=== PATIENT | female | born 1945 | race Caucasian/White ===

== ENCOUNTER → 2016-06-21 | Day surgery (SDC) | payer MEDICARE ==
--- NOTE | 2016-06-17 10:27 | HP ---
ADMITTING HISTORY AND PHYSICAL: DATE OF ADMISSION: 06/21/16 AGE: 70 years, female. ADMITTING DIAGNOSIS: Right hydronephrosis. PLANNED PROCEDURES: Cystoscopy, right retrograde, pyelogram, right ureteroscopy and stent insertion. SURGEON: Kayden Richardson MD ADMITTING HISTORY OF PRESENT ILLNESS: Stacy Ceron is a 70-year-old lady who has had mild right-sided, particularly right lower quadrant pain in the last 1 month which has been progressively getting worse. She denies any nausea or vomiting and her symptoms prompted a CT scan which showed moderate to severe right hydronephrosis. There was no definite calculus noted either on the CT scan or on a subsequent ultrasound. There was some thickening noted at the proximal and mid right ureter and some other findings noted on the CT scan for which she is following up with Dr. Gutierrez. Since there was no significant dilatation of the ureter noted, one possibility is that this may represent a congenital ureteropelvic junction obstruction; the second possibility is it may represent a stricture related to previous pelvic surgery (status post hysterectomy) and the other possibility is some sort of a neoplasm involving the urothelium. PAST MEDICAL HISTORY: Significant for: 1. Hypothyroidism. 2. Herpes. 3. History of right breast cancer in 2005. PAST SURGICAL HISTORY: 1. Significant for total abdominal hysterectomy and bilateral salpingo- oophorectomy in March 2015 for benign conditions. 2. Right breast lumpectomy (followed by radiation and chemotherapy). 3. Bilateral cataracts. MEDICATIONS ON ADMISSION: Include: 1. Prozac 20 mg a day. 2. [place] Thyroid 90 mcg daily. 3. Vitamin D3 at 5000 international units 2 tablets every other day. 4. Acyclovir 800 mg t.i.d. p.r.n. ALLERGIES AND INTOLERANCES: PENICILLIN and STATINS. SMOKING HISTORY: She is a former smoker with a [id number] smoking history who quit about 40 years ago. PHYSICAL EXAMINATION GENERAL: Reveals a pleasant healthy-appearing lady. VITAL SIGNS: Blood pressure 118/60, pulse 75 per minute, temperature 97.1, oxygen saturation 98% on room air. CARDIOVASCULAR: Regular rate and rhythm. S1, S2. LUNGS: Clear bilaterally. ABDOMEN: Soft with no palpable masses. There is no flank tenderness and no abdominal tenderness. LABORATORY/DIAGNOSTIC DATA: Urinalysis is negative. I reviewed the CT scan and ultrasound and had a detailed discussion with Mrs. Ceron regarding the findings and regarding the possible etiology of the hydronephrosis. PLAN: The plan is for right retrograde, right uteroscopy and right stent insertion. She will also be following up with Dr. Gutierrez to discuss the management of the other findings noted on CT scan including abnormality involving the left adrenal gland and possible liver lesions and pleural effusion. CC: Nayeli Gutierrez MD* [id number]/[facility] #: [id number] [facility]ITAL[facility]ando
[~2016-06-21] MED LIST: Buffered Lidocaine 1% SYR 3ML* 3 ML/SYR SYRINGE INTRADERM ONE; Buffered Lidocaine 1% SYR 3ML* 3 ML/SYR SYRINGE ONE; CMCS: Solifenacin(NF) 5 MG TAB PO ONE; Dexamethasone IV* 4 MG/ML 1 ML (4 MG) IV SLOW PU ONE; Dexamethasone IV* 4 MG/ML 1 ML (4 MG) ONE; Furosemide IV* 10 MG/ML 2 ML VIAL (20 MG) ONE; Gentamicin ADULT (*) 140 MG in NS 0.9% 100 ML* 100 ML IVPB ONE; HYDROcodone/ACETAMIN 5-325 MG* 1 TAB ONE; HYDROcodone/ACETAMIN 5-325 MG* 1 TAB PO PRN; Iohexol 180 (CONTRAST) 10 ML SDV IV ONE; Levofloxacin 500 MG IVPREMIX(* 500 MG/100 ML BAG IVPB ONE; Lidocaine 2% MPF* 2 ML VIAL ONE; Ondansetron INJ* 2 MG/ML VIAL ONE; PROCHLORPERAZINE INJ 5 MG/ML 2 ML VIAL IV PRN; Propofol* 10 MG/ML 20 ML BTL IV PUSH ONE; fentaNYL* 50 MCG/ML 2 ML VIAL (100 MCG VIAL) ONE; oxyCODONE/Acetamin 5/325 MG* TAB PO PRN
[2016-06-21] MEDS: fentaNYL* 50 MCG/ML 2 ML VIAL (100 MCG VIAL) IV PRN ×5 (10:21→10:51)
--- NOTE | 2016-06-21 10:33 | RAD ---
INDICATION: Right ureteroscopy and stent insertion COMPARISONS: CT dated June 13, 2016 TECHNIQUE: Fluoroscopy was provided for a retrograde pyelogram and stent placement. Total fluoroscopy time is: 25 seconds FINDINGS: Contrast is noted within the dilated renal collecting system. A ureteral stent is noted. IMPRESSION: FLUOROSCOPY WAS PROVIDED FOR A RETROGRADE PYELOGRAM AND STENT PLACEMENT CPT II Codes: 6045F
[2016-06-21 13:01] VITALS: BP 123/64
--- NOTE | 2016-06-21 23:20 | OP ---
DATE OF OPERATION: 06/21/16 [facility] DATE OF : 41 SURGEON: Kayden Richardson MD ANESTHESIOLOGIST: Dr. Brock. ANESTHESIA: General. PRE-OP DIAGNOSIS: Right hydronephrosis. POST-OP DIAGNOSES: Right hydronephrosis, right ureteral stricture. OPERATIVE PROCEDURE: Cystoscopy, right retrograde pyelogram, right ureteroscopy , right ureteral balloon dilatation, and right stent insertion. COMPLICATIONS: None. STENT USED: An 8.5-[place] 28 cm silicon stent, right ureter. SPECIMENS: Washings from right ureter for cytology. INDICATIONS: Stacy Ceron is a 70-year-old lady who was evaluated for right hydronephrosis. She was noted to have right hydronephrosis without any obvious obstructing calculus or lesion noted. OPERATIVE FINDINGS: 1. Normal appearing bladder. 2. Right hydronephrosis and proximal hydroureter with stricture noted at the junction of the [id number] right ureter (either stricture status post hysterectomy or strictures secondary to extrinsic obstruction from fibrotic tumor surrounding the ureter). DESCRIPTION OF PROCEDURE: After induction of general anesthesia, the patient was placed in dorsal lithotomy position. Sequential compression devices were in place and functioning. Initial cystoscopy revealed a normal-appearing bladder. A guidewire was introduced into the right orifice. Retrograde pyelogram revealed right hydronephrosis with proximal hydroureter. There was a little bit of irregularity in the appearance at the ureteropelvic junction but no definite filling defect was noted and there did appear to be tapering of the ureter at the level of [id number] right ureter, where there appeared to be a stricture. After completion of the retrograde pyelogram, the ureter was initially dilated with dilating catheters to 5-[place] and then to 8-[place]. Next, a 6-[place] semi-rigid ureteroscope was introduced and advanced under direct vision. The distal 3 to 4 cm of the ureter were of normal caliber and then the ureter started getting narrower and the mucosa appeared blanched suggesting a stricture secondary to extrinsic pressure. I did not attempt to force the ureteroscope through the strictured area and at this point decided to proceed with balloon dilatation. Balloon dilatation of the entire strictured segment was successfully carried out under fluoroscopic monitoring. An 8.5- [place] 28 cm silicon stent was then introduced and positioned under fluoroscopy with good proximal and distal positioning obtained. Prior to doing this, washings had been obtained from the ureter and sent for cytology. I think the obstruction is most likely related to a stricture, either a postoperative stricture or possibly a malignant stricture due to fibrotic malignancy surrounding that segment of the ureter. The patient tolerated the procedure satisfactorily and was transferred back to the recovery area in stable condition. CC: Nayeli Gutierrez MD; Kaylee Velazquez MD; Kayden Richardson* [id number]/[facility] #: [id number] [facility] HOSPITALArmando
== END | disposition home or self-care (01) ==
LOC: OR 07:06
PROVIDERS: ATTEND Urology
DX: N13.1 Hydronephrosis with ureteral stricture, not elsewhere classified (principal); Z87.891 Personal history of nicotine dependence; Z85.3 Personal history of malignant neoplasm of breast; E03.9 Hypothyroidism, unspecified
CPT/HCPCS: 74420; 88112; C1876; J1100; J1580; J1940; J1956; J2405; J2704; J3010

== ENCOUNTER 2016-08-19 20:55 | Emergency (ER) | payer MEDICARE ==
[2016-08-19 21:00] VITALS: BP 109/73
[2016-08-19 23:23] LABS: Hematocrit 35 % (35-47); Hemoglobin 11.5 g/dl (12.0-16.0); Mean Corpuscular HGB Conc 33 g/dl (31-36); Mean Corpuscular Hemoglobin 31 pg (27-31); Mean Corpuscular Volume 93 fL (80-97); Mean Platelet Volume 7 um3 (7.4-10.4); Red Blood Count 3.74 10^6/ul (4.0-5.4); Red Cell Distribution Width 15 % (10.5-15); White Blood Count 4.2 10^3/ul (3.5-10.8)
[2016-08-19 23:34] LABS: Albumin 4.2 g/dL (3.2-5.2); BUN/Creatinine Ratio 21.1 (8-20); Calcium 9.5 mg/dL (8.6-10.3); EGFR African American 104.1 (>60); EGFR Non-African American 80.9 (>60); Globulin 2.7 g/dL (2-4); Potassium 3.8 mmol/L (3.5-5.0); Total Bilirubin 0.2 mg/dL (0.2-1.0); Total Protein 6.9 g/dL (6.4-8.9)
[2016-08-19 23:38] LABS: Add Diff/Slide Review? Slide Review Added; Comments Flag Yes
[2016-08-19] MEDS ORDERED: Sulfamethox/Trimethoprim DS 800/160* TAB PO ONE (23:49)
--- NOTE | 2016-09-27 22:25 | ED ---
liat Javier Timothy, scribed for AdrianMatheus on 08/19/16 at 2219 . Complex/Multi-Sys Presentation - HPI Summary HPI Summary: Stacy Carney is a 70 yo female presenting to [facility] with low neutrophils. She was sent here by her oncologist at [facility]. 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 She is currently battling a self-diagnosed sinus infection, and may need IV antibiotics if her lab work is low. She states she has thick, dark, nasal discharge when she wakes up in the morning. She self-medicated with sudafed. She has no fever, CP, abdominal pain, SOB. Her MHx includes thyroid disease, breast CA, arthritis, liver disease, dysthymia, and radiation/chemotherapy. - History Of Current Complaint Chief Complaint: EDGeneral Time Seen by Provider: 08/19/16 22:03 Hx Obtained From: Patient Onset/Duration: Sudden Onset, Lasting Days, Still Present Timing: Constant Severity Currently: Moderate Severity Initially: Moderate Associated Signs And Symptoms: Positive: Other - dark nasal discharge - Allergies/Home Medications Allergies/Adverse Reactions: Allergies Allergy/AdvReac Type Severity Reaction Status Date / Time Penicillins Allergy Unknown Unknown Verified 08/05/16 13:16 Reaction Details Statins AdvReac Mild IMMOBILIZED Verified 08/05/16 13:16 BY ACHES AND PAINS PMH/Surg Hx/FS Hx/Imm Hx Endocrine/Hematology History: Reports: Hx Thyroid Disease Denies: Hx Diabetes Cardiovascular History: Denies: Hx Hypertension, Hx Pacemaker/ICD Respiratory History: Denies: Hx Asthma History: Denies: Hx Dialysis, Hx Renal Disease Musculoskeletal History: Reports: Hx Arthritis - BACK Sensory History: Reports: Hx Cataracts, Hx Contacts or Glasses - GLASSES Denies: Hx Hearing Aid Opthamlomology History: Reports: Hx Cataracts, Hx Contacts or Glasses - GLASSES Psychiatric History: Reports: Hx Depression - DYSTHYMIA Denies: Hx Panic Disorder - Cancer History Cancer Type, Location and Year: right breast ca 2005 Hx Chemotherapy: Yes - AND RADIATION Hx Radiation Therapy: Yes - Surgical History Surgery Procedure, Year, and Place: UTERINE D&C, LUMPECTOMY RT BREAST 06 with radiation and chemo last dose 2006,hysterectomy,bilat cataracts Hx Anesthesia Reactions: No Infectious Disease History: No Infectious Disease History: Denies: Traveled Outside the [place] in Last 30 Days - Family History Known Family History: Negative: Cardiac Disease, Hypertension, Diabetes - Social History Alcohol Use: Occasionally Alcohol Amount: < 1 DRINK PER DAY Substance Use Type: Reports: None Smoking Status (MU): Former Smoker Amount Used/How Often: 1 PPD X 15 YEARS Have You Smoked in the Last Year: No Review of Systems Constitutional: Negative Eyes: Negative Positive: Nasal Discharge - thick, dark Cardiovascular: Negative Respiratory: Negative Gastrointestinal: Negative Genitourinary: Negative Musculoskeletal: Negative Skin: Negative Neurological: Negative Psychological: Normal All Other Systems Reviewed And Are Negative: Yes Physical Exam Triage Information Reviewed: Yes Vital Signs On Initial Exam: Initial Vitals Temp Pulse Resp BP Pulse Ox 99.1 F 90 16 109/73 100 08/19/16 20:56 08/19/16 20:56 08/19/16 20:56 08/19/16 20:56 08/19/16 20:56 Vital Signs Reviewed: Yes Appearance: Positive: Well-Appearing, No Pain Distress, Well-Nourished Skin: Positive: Warm, Skin Color Reflects Adequate Perfusion, Dry Head/Face: Positive: Normal Head/Face Inspection Eyes: Positive: EOMI, NILAM ENT: Positive: Normal ENT inspection Neck: Positive: Supple, Nontender Respiratory/Lung Sounds: Positive: Clear to Auscultation, Breath Sounds Present Cardiovascular: Positive: RRR, Pulses are Symmetrical in both Upper and Lower Extremities Abdomen Description: Positive: Nontender, Soft Bowel Sounds: Positive: Present Musculoskeletal: Positive: Normal, Strength/ROM Intact Neurological: Positive: Normal, Sensory/Motor Intact, Alert, Oriented to Person Place, Time Psychiatric: Positive: Normal Diagnostics - Vital Signs Vital Signs Temp Pulse Resp BP Pulse Ox 08/19/16 20:56 99.1 F 90 16 109/73 100 - Laboratory Result Diagrams: 08/19/16 23:05 08/19/16 23:05 Lab Statement: Any lab studies that have been ordered have been reviewed, and results considered in the medical decision making process. Re-Evaluation - Re-Evaluation First Eval Re-Evaluation Time: 23:48 Change: Unchanged Comment: Pt was informed of results of her blood work. She is agreeable to be discharged. Complex Multi-Symp Course/Dx Assessment/Plan: Stacy Carney is a stage 4 metastic breast CA Pt appearing to [facility] today with self-diagnosed sinus infection and is concerned about her neutrophil levels. Pt decline a nasal CT. After clinical examination and review of her laboratory results, she will be discharged with sinusitis and appropriate instructions. - Diagnoses Provider Diagnoses: Breast cancer, stage 4, Sinusitis Discharge - Discharge Plan Condition: Stable Disposition: HOME Patient Education Materials: Sinusitis (ED) Referrals: Nayeli Gutierrez MD [Primary Care Provider] - 3 Days Additional Instructions: Please follow up with your primary care physician within 3 days regarding your visit to the emergency department today. Return to the emergency department with any new or recurring symptoms. The documentation as recorded by the liat wolf Timothy accurately reflects the service I personally performed and the decisions made by , Matheus Campbell.
== END 2016-08-20 00:09 | disposition home or self-care (01) ==
LOC: ED 20:55
DX: J32.9 Chronic sinusitis, unspecified (principal)
CPT/HCPCS: 36415; 80053; 85025; 99282; A9270-GY